=== PATIENT | female | born 1960 | race African-American/Black ===

== ENCOUNTER 2023-07-16 11:59 | Emergency (ER) | payer OTHER ==
[~2023-07-16] VITALS: Ht 167.6 cm; Wt 75.0 kg
[2023-07-16 12:03] VITALS: O2SAT 100
[2023-07-16 12:52] LABS: BASOPHILS % 0.3 % (0.0-2.0); EOSINOPHILS % 0.5 % (0.0-5.0); HEMATOCRIT. 47.8 % (36.0-48.0); HEMOGLOBIN. 15.3 g/dL (12.0-16.0); LYMPHOCYTES % 21.6 % (20.0-50.0); MEAN CORPUSCULAR HEMOGLOBIN 28.7 pg (28.0-32.0); MEAN CORPUSCULAR HGB CONC 31.9 g/dL (31.0-37.0); MEAN CORPUSCULAR VOLUME 89.8 fL (81.0-99.0); MEAN PLATELET VOLUME 8.2 fl (7.4-10.4); NEUTROPHILS % 72.6 % (40.0-76.0); PLATELET 278 x1000/uL (130-400); RED BLOOD CELL COUNT 5.32 mill/uL (4.2-5.4); RED CELL DISTRIBUTION WIDTH 15.8 % (11.6-14.6); WHITE BLOOD COUNT 3.8 x1000/uL (4.5-11.0)
[2023-07-16 12:58] LABS: ALANINE AMINOTRANSFERASE 24 IU/L (10-49); ALBUMIN 4.6 g/dL (3.2-4.8); ASPARTATE AMINOTRANSFERASE 20 IU/L (<34); BILIRUBIN TOTAL 1.8 mg/dL (0.1-1.0); CALCIUM 10.4 mg/dL (8.7-10.4); CARBON DIOXIDE 30 mEq/L (21-32); CHLORIDE 105 mEq/L (98-107); CREATININE 2.2 mg/dL (0.6-1.0); GLUCOSE 170 mg/dL (70-105); POTASSIUM 4.9 mEq/L (3.5-5.1); PROTEIN TOTAL 7.7 g/dL (6.0-8.3); SODIUM 142 mEq/L (136-145); TROPONIN I HIGH SENSITIVITY 21 ng/L (3.0-34); UREA NITROGEN BLOOD 28 mg/dL (9-23)
[2023-07-16 14:48] LABS: CLARITY URINE TURBID (CLEAR); COLOR URINE DARK YELLOW (YELLOW); GLUCOSE URINE NEGATIVE (NEGATIVE); KETONES URINE TRACE (NEGATIVE); LEUKOCYTE ESTERASE URINE 2+ (NEGATIVE); NITRITE URINE NEGATIVE (NEGATIVE); OCCULT BLOOD URINE NEGATIVE (NEGATIVE); PH URINE 5.5 (4.5-8.0); PROTEIN URINE 1+ (NEGATIVE); SPECIFIC GRAVITY URINE 1.023 (1.005-1.030)
[2023-07-16 15:12] LABS: RBC URINE 0-2 /hpf (0-2)
[2023-07-16 15:13] LABS: BACTERIA URINE 1+; SQUAMOUS EPITHELIAL CELL URINE 3+ /lpf (RARE/1+)
[2023-07-16 15:16] LABS: TROPONIN I HIGH SENSITIVITY 22 ng/L (3.0-34)
[2023-07-16] MEDS ORDERED: CLONIDINE 0.1MG TABLET PO ONE ×2 (17:00→18:15)
[2023-07-16 20:00] VITALS: BP 137/95; PULSE 94; RESP 15; TEMP 98
== END 2023-07-16 23:49 | disposition left against medical advice (07) ==
LOC: ER 11:59 → CANBEDREQ 07-17 10:17
DX: R00.2 Palpitations (principal); I48.91 Unspecified atrial fibrillation; I10 Essential (primary) hypertension; Z86.73 Personal history of transient ischemic attack (TIA), and cerebral infarction without residual deficits
CPT/HCPCS: 80053; 81003; 83880; 85025; 85379; 84484; 36415; 71045; 93005; 99285; Z7610 ×4

== ENCOUNTER 2024-08-26 14:08 | Inpatient (IN) | payer OTHER ==
[~2024-08-26] VITALS: Ht 157.5 cm; Wt 84.8 kg
[2024-08-26 14:16] VITALS: O2SAT 98
[2024-08-26] MEDS: DILTIAZEM HCL 125 MG in DEXT 5% WATER 100 ML IV ONE (17:52)
[2024-08-26 17:54] LABS: BASOPHILS % 1.2 % (0.0-2.0); HEMATOCRIT. 43.1 % (36.0-48.0); HEMOGLOBIN. 14.1 g/dL (12.0-16.0); LYMPHOCYTES % 33.9 % (20.0-50.0); MEAN CORPUSCULAR HEMOGLOBIN 28.6 pg (28.0-32.0); MEAN CORPUSCULAR HGB CONC 32.6 g/dL (31.0-37.0); MEAN CORPUSCULAR VOLUME 87.7 fL (81.0-99.0); MEAN PLATELET VOLUME 8.2 fl (7.4-10.4); MONOCYTES % 7.9 % (2.0-8.0); PLATELET 317 x1000/uL (130-400); RED BLOOD CELL COUNT 4.91 mill/uL (4.2-5.4); RED CELL DISTRIBUTION WIDTH 16.1 % (11.6-14.6); WHITE BLOOD COUNT 5.1 x1000/uL (4.5-11.0)
[2024-08-26 18:01] LABS: CHLORIDE 102 mEq/L (98-107); SODIUM 143 mEq/L (136-145)
[2024-08-26 18:02] LABS: CALCIUM 9.8 mg/dL (8.7-10.4); CARBON DIOXIDE 33 mEq/L (21-32)
[2024-08-26 18:06] LABS: PARTIAL THROMBOPLASTIN TIME 27.3 sec (23.4-31.0); PROTHROMBIN TIME 11.2 sec (9.6-11.0)
[2024-08-26 18:07] LABS: CREATININE 1.8 mg/dL (0.6-1.0); GLUCOSE 94 mg/dL (70-105)
[2024-08-26 18:08] LABS: UREA NITROGEN BLOOD 29 mg/dL (9-23)
[2024-08-26 18:09] LABS: ALANINE AMINOTRANSFERASE 18 IU/L (10-49); ALBUMIN 4.3 g/dL (3.2-4.8); ASPARTATE AMINOTRANSFERASE 18 IU/L (<34)
[2024-08-26 18:10] LABS: BILIRUBIN DIRECT 0.2 mg/dL (<=3.0); PROTEIN TOTAL 6.9 g/dL (6.0-8.3)
[2024-08-26 18:13] LABS: TROPONIN I HIGH SENSITIVITY 39 ng/L (3.0-34)
[2024-08-26] MEDS: POTASSIUM CHLORIDE 20MEQ TABLET SR PO ONE (19:30)
[2024-08-26] MEDS: ASPIRIN 325MG EC TABLET PO ONE (19:30)
[2024-08-26] MEDS: CLOPIDOGREL 75MG TABLET PO ONE (19:31)
[2024-08-27] MEDS: HYDRALAZINE 20MG/ML VIAL IV PRN (03:24)
[2024-08-27] MEDS ORDERED: HYDRALAZINE 20MG/ML VIAL IV PRN (06:00)
[2024-08-27] MEDS: DILTIAZEM HCL 125 MG in DEXT 5% WATER 100 ML IV PRN (08:17)
[2024-08-27] MEDS: ENOXAPARIN 80MG/0.8ML SYR SUBCUT SCH (12:02)
[2024-08-27] MEDS: FUROSEMIDE 40MG/4ML VIAL IVP NR (12:03)
[2024-08-27] MEDS: POTASSIUM CHLORIDE 20MEQ/PACKET PO NR ×2 (12:03→16:23)
[2024-08-27] MEDS: DILTIAZEM HCL 30MG TABLET PO SCH (12:03)
[2024-08-27] MEDS ORDERED: POTASSIUM CHLORIDE 20MEQ/PACKET PO NR (19:45)
[2024-08-27 20:00] VITALS: BP 168/107; PULSE 110; RESP 20; TEMP 36.3918; O2SAT 99
[2024-08-27] MEDS: ATORVASTATIN CALCIUM 40MG TABLET PO SCH (20:56)
[2024-08-27] MEDS: ACETAMINOPHEN 325MG TABLET PO PRN (20:57)
[2024-08-27 22:23] LABS: POTASSIUM 3.5 mEq/L (3.5-5.1)
[2024-08-27] MEDS: ONDANSETRON HCL 4MG/2ML INJ IV PRN (22:27)
[2024-08-27 22:29] LABS: CREATININE 1.8 mg/dL (0.6-1.0)
[2024-08-28] VITALS: BP 151/96; PULSE 115; RESP 16; TEMP 36.44736; O2SAT 98
[2024-08-28] MEDS: DILTIAZEM HCL 5MG/ML 5ML VIAL IV NR (01:35)
[2024-08-28 04:00] VITALS: BP 174/91; PULSE 122; RESP 18; TEMP 36.114; O2SAT 98
[2024-08-28 05:58] LABS: BASOPHILS % 0.6 % (0.0-2.0); EOSINOPHILS % 1.1 % (0.0-5.0); HEMATOCRIT. 43.6 % (36.0-48.0); HEMOGLOBIN. 14.4 g/dL (12.0-16.0); LYMPHOCYTES % 23.3 % (20.0-50.0); MEAN CORPUSCULAR HGB CONC 32.9 g/dL (31.0-37.0); MEAN PLATELET VOLUME 8.5 fl (7.4-10.4); MONOCYTES % 7.6 % (2.0-8.0); NEUTROPHILS % 67.4 % (40.0-76.0); PLATELET 334 x1000/uL (130-400); RED BLOOD CELL COUNT 4.96 mill/uL (4.2-5.4); RED CELL DISTRIBUTION WIDTH 16.5 % (11.6-14.6); WHITE BLOOD COUNT 5.9 x1000/uL (4.5-11.0)
[2024-08-28] MEDS: ASPIRIN 81MG TABLET PO SCH (09:00)
[2024-08-28] MEDS ORDERED: AMLODIPINE 10MG TABLET PO SCH (09:00)
[2024-08-28] MEDS: FUROSEMIDE 40MG/4ML VIAL IVP NR (10:30)
[2024-08-28] MEDS: ISOSORBIDE MONONITRATE 30MG TABLET SR 24HR PO SCH (10:30)
[2024-08-28 12:00] VITALS: BP 142/92; PULSE 80; RESP 18; TEMP 36.22512; O2SAT 100
[2024-08-28] MEDS ORDERED: DILTIAZEM HCL 30MG TABLET PO NR (12:00)
[2024-08-28] MEDS: DILTIAZEM HCL 90MG TABLET PO SCH (12:54)
[2024-08-28 16:00] VITALS: BP 140/84; PULSE 95; RESP 15; TEMP 36.22512; O2SAT 100
[2024-08-28 20:00] VITALS: BP 155/90; PULSE 89; RESP 16; TEMP 36.55848; O2SAT 99
[2024-08-29] VITALS: BP 172/79; PULSE 96; RESP 17; TEMP 36.83628; O2SAT 98
[2024-08-29 04:00] VITALS: BP 157/102; PULSE 97; RESP 15; TEMP 36.83628; O2SAT 99
[2024-08-29 05:56] VITALS: BP 157/102; PULSE 97; RESP 15; TEMP 36.8628
[2024-08-29 08:00] VITALS: BP 144/85; PULSE 99; RESP 16; TEMP 36.44736; O2SAT 98
[2024-08-29] MEDS ORDERED: ATOR20TA MT (09:21)
[2024-08-29] MEDS ORDERED: DILT360C27 MT ×2 (09:21→11:05)
[2024-08-29] MEDS: FUROSEMIDE 40MG TABLET PO SCH (10:18)
[2024-08-29] MEDS: CLONIDINE 0.1MG TABLET PO NR (10:27)
[2024-08-29 12:00] VITALS: BP 127/85; PULSE 89; RESP 18; TEMP 37.2252; TEMP 37.22520; O2SAT 98
== END 2024-08-29 13:45 | disposition home or self-care (01) | DRG 281 ==
LOC: ER 14:08 → EDBEDREQTM 19:08 → EDBEDREQ 19:08 → EDBEDREQSVC 08-27 16:49 → 5WST 08-27 18:39
PROVIDERS: ADMIT Internal Medicine; ATTEND Internal Medicine
DX: I16.0 Hypertensive urgency (principal); N17.9 Acute kidney failure, unspecified; I21.4 Non-ST elevation (NSTEMI) myocardial infarction; E87.6 Hypokalemia; E87.70 Fluid overload, unspecified; I12.9 Hypertensive chronic kidney disease with stage 1 through stage 4 chronic kidney disease, or unspecified chronic kidney disease; E78.5 Hyperlipidemia, unspecified; I48.91 Unspecified atrial fibrillation; N18.9 Chronic kidney disease, unspecified; Z86.73 Personal history of transient ischemic attack (TIA), and cerebral infarction without residual deficits; Z79.01 Long term (current) use of anticoagulants
CPT/HCPCS: 36415; 70551; 71045; 80048; 80061; 80076; 83735; 83880; 84443; 84484; 85025; 93005; 93306; 99291; J0360; J1650; J1940; J2405; J3490; J7060